=== PATIENT | female | born 1960 | race Caucasian/White ===

== ENCOUNTER 2017-04-16 05:28 | Inpatient (IN) | payer OTHER ==
[2017-04-08 11:22] LABS: CLARITY,URINE Clear (Clear); COLOR,URINE Yellow (Yellow); GLUCOSE, URINE Negative (Neg); KETONES,URINE 15 mg/dl (Neg); LEUKOCYTE ESTERASE ,URINE Small (Neg); NITRITES, URINE Negative (Neg); OCCULT BLOOD,URINE Negative (Neg); PROTEIN,URINE Negative (Neg); UROBILINOGEN,URINE 0.2 E.U/dL (0.2-1.0)
[2017-04-08 11:24] LABS: BASOPHILS % (AUTO) 0.5 % (0-1); EOSINOPHILS # (AUTO) 0.1 X10'3 (0-0.9); EOSINOPHILS % (AUTO) 1.5 % (0-6); LYMPHOCYTES # (AUTO) 1.5 X10'3 (1.1-4.8); LYMPHOCYTES % (AUTO) 29.8 % (21-51); MEAN CORPUSCULAR HEMOGLOBIN 31.4 PG (27.0-31.0); MEAN CORPUSCULAR HGB CONC 34.5 % (33.0-36.5); MEAN CORPUSCULAR VOLUME 90.9 FL (78-98); MEAN PLATELET VOLUME 8.4 FL (7.4-10.4); MONOCYTES # (AUTO) 0.3 X10'3 (0-0.9); MONOCYTES % (AUTO) 6.8 % (2-12); NEUTROPHILS # (AUTO) 3.1 X10'3 (1.8-7.7); NEUTROPHILS % (AUTO) 61.4 % (42-75); PRE OP HEMATOCRIT 39.2 % (35.0-45.0); PRE OP HEMOGLOBIN 13.5 g/dL (12.0-16.0); PRE OP PLATELET COUNT 225 X10'3 (140-440); RED BLOOD COUNT 4.31 X10'6 (4.20-5.60); RED CELL DISTRIBUTION WIDTH 13.1 % (11.5-14.5)
[2017-04-08 11:29] LABS: UA COLLECTION TYPE CLN CATCH MIDSTREAM
[2017-04-08 11:40] LABS: ALBUMIN 4.5 G/DL (3.4-5.0); ALBUMIN/GLOBULIN RATIO 1.4 (1.1-1.5); ALKALINE PHOSPHATASE 67 IU/L (46-116); BLOOD UREA NITROGEN 11 MG/DL (7-18); BUN/CREATININE RATIO 21.6 (6.6-38.0); CALCIUM 9.4 MG/DL (8.5-10.1); CHLORIDE 102 MMOL/L (99-107); CREATININE 0.51 MG/DL (0.40-0.90); PRE OP ALT 23 U/L (30-65); PRE OP ANION GAP 7 (8-16); PRE OP AST 21 U/L (10-37); PRE OP BILIRUB, TOTAL 1.5 MG/DL (0.0-1.0); PRE OP GLUCOSE 92 MG/DL (70-104); PRE OP POTASSIUM 3.7 MMOL/L (3.4-5.1); PRE OP SODIUM 139 MMOL/L (135-145); TOTAL PROTEIN 7.7 G/DL (6.4-8.2); eGFR > 90 ML/MIN
[2017-04-08 11:50] LABS: RBC,URINE 0-2 /HPF (0-2)
[2017-04-08 11:51] LABS: BACTERIA,URINE NONE SEEN /HPF (Neg); SQUAMOUS EPITHELIAL CELL,UR NONE SEEN /LPF (FEW); WBC,URINE 0-4 /HPF (0-4)
[2017-04-16] VITALS (17 sets, daily range): BP systolic 101–164; BP diastolic 56–84
[~2017-04-16] VITALS: Ht 160 cm; Wt 68.2 kg
[~2017-04-16 05:28] MED LIST: ACET-2812 PO; ASCO500C15 PO; CBD OIL TOP; GLUC-237 PO; IBUP-1984 PO; OSC500T PO; ringers solution, lacted 1,000 ML IV SCH
[2017-04-16] MEDS ORDERED: acetaminophen 325mg tablet PO ONE (05:30)
[2017-04-16] MEDS ORDERED: VANCOMYCIN INJ 1000 MG in NORMAL SALINE 250ml IV.SOLN IV ONE (05:30)
[2017-04-16] MEDS ORDERED: famotidine 20mg tablet PO ONE (05:30)
[2017-04-16] MEDS ORDERED: celeCOXIB 100mg capsule PO ONE (05:30)
[2017-04-16] MEDS ORDERED: gabapentin 300mg capsule PO ONE (05:30)
[2017-04-16] MEDS ORDERED: metoclopramide 5 mg/ml inj IV ONE (05:30)
[2017-04-16] MEDS ORDERED: tranexamic acid inj. 1,000 MG in normal saline 100ml IV soln 90 ML IV ONE (05:30)
[2017-04-16] MEDS ORDERED: cefazolin/dext.iso 2gm/50ml 50 ML IV ONE (05:30)
[2017-04-16] MEDS ORDERED: LIDOcaine 1% (10mg/ml) 2ml vial ONE (06:29)
[2017-04-16] MEDS ORDERED: epiNEPHrine 1 mg/ml inj ONE (06:47)
[2017-04-16] MEDS ORDERED: ketorolac trometh. 30mg/ml inj. ONE (06:47)
[2017-04-16] MEDS ORDERED: cloNIDine hcl/PF 100mcg/ml inj ONE ×2 (06:47→07:13)
[2017-04-16] MEDS ORDERED: vancomycin 1,000mg inj ONE (06:48)
[2017-04-16] MEDS ORDERED: ROPIVAcaine 0.5% (5mg/ml) 30ml vial ONE (06:48)
[2017-04-16] MEDS ORDERED: metoclopramide 10mg tablet PO ONE (06:50)
[2017-04-16] MEDS ORDERED: MIDAZolam 1mg/ml 10ml vial ONE (07:17)
[2017-04-16] MEDS ORDERED: MORPHINE SULFATE/PF 0.5 MG/ML 10ML AMPUL ONE (07:18)
[2017-04-16] MEDS ORDERED: ringers solution, lacted 1,000 ML IV SCH (08:36)
[2017-04-16] MEDS ORDERED: meperidine/PF 50mg/ml syringe IV PRN ×3 (08:40)
[2017-04-16] MEDS ORDERED: proCHLORperazine 10 MG/2 ml inj IV PRN (08:40)
[2017-04-16] MEDS ORDERED: morphine 2 MG/ML inj. syringe IV PRN ×2 (08:40)
[2017-04-16] MEDS ORDERED: ondansetron/PF 4mg/2ml inj IV PRN ×3 (08:40→09:35)
[2017-04-16] MEDS ORDERED: acetaminophen 1,000mg/100ml IV 100 ML IV PRN (08:40)
[2017-04-16] MEDS ORDERED: BUPIVAcaine/PF 2.5 mg/ml (0.25%) 30ml vial ONE (08:59)
[2017-04-16] MEDS ORDERED: dexamethasone sod phosphate 4mg/ml inj. ONE (08:59)
[2017-04-16] MEDS ORDERED: ePHEDrine 50MG/ML INJ. ONE (08:59)
[2017-04-16] MEDS ORDERED: propofol inj 20 ML IV ONE ×2 (08:59)
[2017-04-16] MEDS ORDERED: HYDROmorphone inj. 0.5 MG/0.5 ML DISP.SYRIN IV PRN ×2 (09:35)
[2017-04-16] MEDS ORDERED: oxyCODONE/APAP 10/325mg tablet PO PRN (09:35)
[2017-04-16] MEDS ORDERED: bisacodyl 10mg suppository rectal RC PRN (09:35)
[2017-04-16] MEDS ORDERED: magnesium hydroxide 30ml (MOM) UD suspension PO PRN (09:35)
[2017-04-16] MEDS ORDERED: naloxone 2mg/2ml inj 1.4 MG in normal saline 500ml IV soln 500 ML IV PRN (09:35)
[2017-04-16] MEDS ORDERED: diphenhydrAMINE 25mg capsule PO PRN ×2 (09:35)
[2017-04-16] MEDS ORDERED: acetaminophen 325mg tablet PO PRN (09:35)
[2017-04-16] MEDS ORDERED: diphenhydrAMINE 50 mg/ml inj IV PRN (09:35)
[2017-04-16] MEDS: potassium cl 20mEq in 1/2 NS 1,000 ML IV SCH ×2 (10:51→18:57)
[2017-04-16] MEDS: oxyCODONE/APAP 10/325mg tablet PO SCH ×2 (12:38→16:28)
[2017-04-16] MEDS: gabapentin 300mg capsule PO SCH ×2 (12:38→20:14)
[2017-04-16] MEDS: cefazolin 1gm/NS 100mL 100 ML IV SCH (15:43)
[2017-04-16] MEDS ORDERED: vancomycin/NS 1 GM ADD-VANTAGE 250 ML IV SCH (20:00)
[2017-04-16] MEDS ORDERED: ascorbic acid 500mg tablet PO SCH (20:00)
[2017-04-16] MEDS: oxyCODONE/APAP 10/325mg tablet PO PRN (20:12)
[2017-04-16] MEDS: celeCOXIB 100mg capsule PO SCH (20:13)
[2017-04-16] MEDS: ascorbic acid 500mg tablet PO SCH (20:13)
[2017-04-16] MEDS: sennosides 8.6mg tablet PO SCH (20:14)
[2017-04-17] VITALS (7 sets, daily range): BP systolic 95–123; BP diastolic 44–59
[2017-04-17] MEDS: cefazolin 1gm/NS 100mL 100 ML IV SCH (00:01)
[2017-04-17] MEDS: potassium cl 20mEq in 1/2 NS 1,000 ML IV SCH ×2 (01:31→04:56)
[2017-04-17] MEDS: oxyCODONE/APAP 10/325mg tablet PO PRN ×5 (04:55→17:46)
[2017-04-17 06:24] LABS: BASOPHILS % (AUTO) 0.3 % (0-1); EOSINOPHILS # (AUTO) 0.1 X10'3 (0-0.9); EOSINOPHILS % (AUTO) 1.1 % (0-6); HEMATOCRIT 28.7 % (35.0-45.0); LYMPHOCYTES # (AUTO) 1.2 X10'3 (1.1-4.8); MEAN CORPUSCULAR HEMOGLOBIN 31.4 PG (27.0-31.0); MEAN CORPUSCULAR HGB CONC 34.8 % (33.0-36.5); MEAN CORPUSCULAR VOLUME 90.4 FL (78-98); MEAN PLATELET VOLUME 8.7 FL (7.4-10.4); MONOCYTES # (AUTO) 0.7 X10'3 (0-0.9); NEUTROPHILS # (AUTO) 4.8 X10'3 (1.8-7.7); NEUTROPHILS % (AUTO) 71.6 % (42-75); PLATELET COUNT 152 X10'3 (140-440); RED BLOOD COUNT 3.17 X10'6 (4.20-5.60); RED CELL DISTRIBUTION WIDTH 13.3 % (11.5-14.5); WHITE BLOOD COUNT 6.8 X10'3 (4.5-11.0)
[2017-04-17 06:30] LABS: ANION GAP 4 (8-16); CHLORIDE 100 MMOL/L (99-107); POTASSIUM 4.6 MMOL/L (3.5-5.1); SODIUM 131 MMOL/L (135-145); TOTAL CARBON DIOXIDE 27.4 MMOL/L (24-32)
[2017-04-17] MEDS: celeCOXIB 100mg capsule PO SCH ×2 (08:26→20:34)
[2017-04-17] MEDS: calcium carbonate 500mg tablet PO SCH (08:27)
[2017-04-17] MEDS: gabapentin 300mg capsule PO SCH ×3 (08:27→20:34)
[2017-04-17] MEDS: multivitamins, therapeutics tablet PO SCH (08:28)
[2017-04-17] MEDS: ascorbic acid 500mg tablet PO SCH ×2 (08:28→20:34)
[2017-04-17] MEDS: aspirin 325mg tablet PO SCH (08:28)
[2017-04-17] MEDS: sennosides 8.6mg tablet PO SCH (20:34)
[2017-04-18] MEDS: oxyCODONE/APAP 10/325mg tablet PO PRN ×3 (00:33→10:08)
[2017-04-18 06:00] VITALS: BP 141/71
[2017-04-18 06:26] LABS: BASOPHILS % (AUTO) 0.3 % (0-1); EOSINOPHILS # (AUTO) 0.1 X10'3 (0-0.9); EOSINOPHILS % (AUTO) 1.6 % (0-6); HEMATOCRIT 30.3 % (35.0-45.0); HEMOGLOBIN 10.4 g/dl (12.0-16.0); LYMPHOCYTES # (AUTO) 0.9 X10'3 (1.1-4.8); LYMPHOCYTES % (AUTO) 16.4 % (21-51); MEAN CORPUSCULAR HEMOGLOBIN 30.9 PG (27.0-31.0); MEAN CORPUSCULAR HGB CONC 34.2 % (33.0-36.5); MEAN CORPUSCULAR VOLUME 90.4 FL (78-98); MEAN PLATELET VOLUME 9.1 FL (7.4-10.4); MONOCYTES # (AUTO) 0.6 X10'3 (0-0.9); MONOCYTES % (AUTO) 10.4 % (2-12); NEUTROPHILS % (AUTO) 71.3 % (42-75); PLATELET COUNT 129 X10'3 (140-440); RED BLOOD COUNT 3.35 X10'6 (4.20-5.60); RED CELL DISTRIBUTION WIDTH 12.9 % (11.5-14.5); WHITE BLOOD COUNT 5.6 X10'3 (4.5-11.0)
[2017-04-18] MEDS ORDERED: ASPI-1 PO (06:35)
[2017-04-18 06:37] LABS: ANION GAP 6 (8-16); BLOOD UREA NITROGEN 11 MG/DL (7-18); BUN/CREATININE RATIO 20.4 (6.6-38.0); CALCIUM 8.4 MG/DL (8.5-10.1); CHLORIDE 101 MMOL/L (99-107); CREATININE 0.54 MG/DL (0.40-0.90); GLUCOSE 99 MG/DL (70-104); SODIUM 136 MMOL/L (135-145); TOTAL CARBON DIOXIDE 29.4 MMOL/L (24-32); eGFR > 90 ML/MIN
[2017-04-18] MEDS: calcium carbonate 500mg tablet PO SCH (07:36)
[2017-04-18] MEDS: gabapentin 300mg capsule PO SCH (07:36)
[2017-04-18] MEDS: aspirin 325mg tablet PO SCH (07:36)
[2017-04-18] MEDS: celeCOXIB 100mg capsule PO SCH (07:36)
[2017-04-18] MEDS: ascorbic acid 500mg tablet PO SCH (07:36)
[2017-04-18] MEDS: multivitamins, therapeutics tablet PO SCH (07:36)
== END 2017-04-18 10:35 | disposition home or self-care (01) | DRG 470 ==
LOC: PAS IN 05:28 → EDSTATUS 07:30 → ORTHO 4S 10:35
PROVIDERS: ADMIT Orthopaedic Surgery; ATTEND Orthopaedic Surgery
PROC: 0SRC0J9 Replacement of Right Knee Joint with Synthetic Substitute, Cemented, Open Approach (ICD-10-PCS; principal; 2017-04-16 07:14)
DX: M17.11 Unilateral primary osteoarthritis, right knee (principal); D62 Acute posthemorrhagic anemia; M77.9 Enthesopathy, unspecified; Z79.82 Long term (current) use of aspirin; Z79.899 Other long term (current) drug therapy
CPT/HCPCS: 36415; 71046; 73560; 80048; 80051; 80053; 81001; 85025; 86885; 86900; 86901; 87070; 87088; 93005; 97110; 97116; 97161; 97530; A6449; A6455; A7000; C1713; C1758; C1776; J0171; J0690; J0735; J1100; J1885; J2250; J2274; J2310; J2704; J2795; J3370; J3490; J7030; J7120; J8597

== ENCOUNTER 2018-02-05 06:07 | Inpatient (IN) | payer OTHER ==
[2018-01-26 15:24] LABS: BASOPHILS # (AUTO) 0.1 X10'3 (0-0.2); BASOPHILS % (AUTO) 1.1 % (0-1); EOSINOPHILS # (AUTO) 0.2 X10'3 (0-0.9); LYMPHOCYTES # (AUTO) 2.1 X10'3 (1.1-4.8); LYMPHOCYTES % (AUTO) 37.8 % (21-51); MEAN CORPUSCULAR HEMOGLOBIN 30.4 PG (27.0-31.0); MEAN CORPUSCULAR HGB CONC 33.4 % (33.0-36.5); MEAN CORPUSCULAR VOLUME 91.2 FL (78-98); MEAN PLATELET VOLUME 8.8 FL (7.4-10.4); MONOCYTES # (AUTO) 0.4 X10'3 (0-0.9); NEUTROPHILS # (AUTO) 2.9 X10'3 (1.8-7.7); NEUTROPHILS % (AUTO) 51.1 % (42-75); PRE OP HEMATOCRIT 39.3 % (35.0-45.0); PRE OP HEMOGLOBIN 13.1 g/dL (12.0-16.0); PRE OP PLATELET COUNT 203 X10'3 (140-440); RED BLOOD COUNT 4.31 X10'6 (4.20-5.60); RED CELL DISTRIBUTION WIDTH 13.2 % (11.5-14.5)
[2018-01-26 15:35] LABS: ALBUMIN/GLOBULIN RATIO 1.3 (1.1-1.5); ALKALINE PHOSPHATASE 90 IU/L (46-116); BLOOD UREA NITROGEN 11 MG/DL (7-18); BUN/CREATININE RATIO 23.4 (6.6-38.0); CALCIUM 9.5 MG/DL (8.5-10.1); CHLORIDE 103 MMOL/L (99-107); CREATININE 0.47 MG/DL (0.40-0.90); PRE OP ALT 26 U/L (30-65); PRE OP ANION GAP 8 (8-16); PRE OP AST 21 U/L (10-37); PRE OP GLUCOSE 92 MG/DL (70-104); PRE OP POTASSIUM 3.6 MMOL/L (3.4-5.1); PRE OP SODIUM 140 MMOL/L (135-145); TOTAL CARBON DIOXIDE 28.9 MMOL/L (24-32); TOTAL PROTEIN 7.1 G/DL (6.4-8.2); eGFR > 90 ML/MIN
[2018-01-26 15:50] LABS: CLARITY,URINE CLEAR (Clear); COLOR,URINE STRAW (Yellow); GLUCOSE, URINE NEGATIVE (Neg); KETONES,URINE NEGATIVE (Neg); LEUKOCYTE ESTERASE ,URINE NEGATIVE (Neg); NITRITES, URINE NEGATIVE (Neg); OCCULT BLOOD,URINE NEGATIVE (Neg); PH,URINE 6.5 (4.8-8.0); PROTEIN,URINE NEGATIVE (Neg); UA COLLECTION TYPE CLN CATCH MIDSTREAM; UROBILINOGEN,URINE 0.2 E.U/dL (0.2-1.0)
[2018-02-05] VITALS (18 sets, daily range): BP systolic 98–144; BP diastolic 45–78
[~2018-02-05] VITALS: Ht 160 cm; Wt 76.1 kg
[~2018-02-05 06:07] MED LIST changes: +ASCO-22 PO; -ASCO500C15 PO; +ASPI81TA52 PO; -CBD OIL TOP; +VITA400C19 PO; +acetaminophen 325mg tablet PO ONE; +ceFAZolin inj. 2,000 MG in dextrose 5%-water 50ml 50 ML IV ONE; +celeCOXIB 100mg capsule PO ONE; +famotidine 20mg tablet PO ONE; +gabapentin 300mg capsule PO ONE; +metoclopramide 5 mg/ml inj IV ONE; +normal saline 1000ml 1,000 ML IV SCH; +oxyCODONE SR 10mg (sust. release) tab -2 tabs (20mg) PO ONE; +tranexamic acid inj. 1,000 MG in normal saline 100ml IV soln 90 ML IV ONE; +vancomycin inj 1,500 MG in normal saline 300ml IV soln IV ONE
[2018-02-05] MEDS ORDERED: ROPIVAcaine 0.5% (5mg/ml) 30ml vial ONE ×2 (06:49→10:49)
[2018-02-05] MEDS ORDERED: ketorolac trometh. 30mg/ml inj. ONE (06:49)
[2018-02-05] MEDS ORDERED: vancomycin 1,000mg inj ONE (06:49)
[2018-02-05] MEDS ORDERED: cloNIDine hcl/PF 100mcg/ml inj ONE (06:49)
[2018-02-05] MEDS ORDERED: epiNEPHrine 1 mg/ml inj ONE (06:49)
[2018-02-05] MEDS ORDERED: HYDROmorphone 1 mg/ml syringe IV PRN ×2 (07:10)
[2018-02-05] MEDS ORDERED: diphenhydrAMINE 25mg capsule PO PRN ×2 (07:10)
[2018-02-05] MEDS ORDERED: bisacodyl 10mg suppository rectal RC PRN (07:10)
[2018-02-05] MEDS ORDERED: ondansetron/PF 4mg/2ml inj IV PRN ×2 (07:10→10:05)
[2018-02-05] MEDS ORDERED: magnesium hydroxide 30ml (MOM) UD suspension PO PRN (07:10)
[2018-02-05] MEDS: potassium cl 20mEq in 1/2 NS 1,000 ML IV SCH ×3 (07:10→23:28)
[2018-02-05] MEDS ORDERED: acetaminophen 325mg tablet PO PRN (07:10)
[2018-02-05] MEDS: ascorbic acid 500mg tablet PO SCH ×2 (08:00→19:55)
[2018-02-05] MEDS ORDERED: vancomycin/NS 1 GM ADD-VANTAGE 250 ML IV SCH (08:00)
[2018-02-05] MEDS: gabapentin 300mg capsule PO SCH ×3 (08:00→19:55)
[2018-02-05] MEDS: multivitamins, therapeutics tablet PO SCH (08:00)
[2018-02-05] MEDS: aspirin 325mg tablet PO SCH (08:30)
[2018-02-05] MEDS ORDERED: MIDAZolam 1mg/ml 10ml vial ONE (09:22)
[2018-02-05] MEDS ORDERED: fentaNYL/PF 50MCG/1 ML 2ML syringe ONE (09:23)
[2018-02-05] MEDS ORDERED: propofol inj 20 ML IV ONE (09:38)
[2018-02-05] MEDS ORDERED: ringers solution, lacted 1,000 ML IV SCH (10:03)
[2018-02-05] MEDS ORDERED: morphine 4 MG/ML inj SYRINge IV PRN ×2 (10:05)
[2018-02-05] MEDS ORDERED: meperidine/PF 25mg/ml syringe IV PRN ×3 (10:05)
[2018-02-05] MEDS ORDERED: proCHLORperazine 10 MG/2 ml inj IV PRN (10:05)
[2018-02-05] MEDS: oxyCODONE/APAP 10/325mg tablet PO PRN ×3 (14:13→21:51)
[2018-02-05] MEDS ORDERED: tranexamic acid inj. 1,000 MG in normal saline 100ml IV soln 100 ML IV ONE (16:00)
[2018-02-05] MEDS: ceFAZolin 1GM/D5W- ADD-VANTAGE 50 ML IV SCH ×2 (16:47→16:50)
[2018-02-05] MEDS: sennosides 8.6mg tablet PO SCH (19:55)
[2018-02-06] VITALS (8 sets, daily range): BP systolic 96–148; BP diastolic 47–72
[2018-02-06] MEDS ORDERED: ceFAZolin 1GM/D5W- ADD-VANTAGE 50 ML IV SCH
[2018-02-06] MEDS: oxyCODONE/APAP 10/325mg tablet PO PRN ×5 (03:39→21:12)
[2018-02-06 06:48] LABS: BASOPHILS % (AUTO) 0.5 % (0-1); EOSINOPHILS # (AUTO) 0.1 X10'3 (0-0.9); EOSINOPHILS % (AUTO) 1.1 % (0-6); HEMATOCRIT 32.2 % (35.0-45.0); HEMOGLOBIN 10.9 g/dl (12.0-16.0); LYMPHOCYTES # (AUTO) 1.3 X10'3 (1.1-4.8); LYMPHOCYTES % (AUTO) 18.1 % (21-51); MEAN CORPUSCULAR HEMOGLOBIN 30.8 PG (27.0-31.0); MEAN CORPUSCULAR HGB CONC 33.8 % (33.0-36.5); MEAN CORPUSCULAR VOLUME 91.1 FL (78-98); MEAN PLATELET VOLUME 8.7 FL (7.4-10.4); MONOCYTES # (AUTO) 0.7 X10'3 (0-0.9); MONOCYTES % (AUTO) 9.4 % (2-12); NEUTROPHILS # (AUTO) 5.2 X10'3 (1.8-7.7); NEUTROPHILS % (AUTO) 70.9 % (42-75); PLATELET COUNT 163 X10'3 (140-440); RED BLOOD COUNT 3.54 X10'6 (4.20-5.60); RED CELL DISTRIBUTION WIDTH 13.3 % (11.5-14.5); WHITE BLOOD COUNT 7.3 X10'3 (4.5-11.0)
[2018-02-06 06:53] LABS: ANION GAP 7 (8-16); CHLORIDE 102 MMOL/L (99-107); POTASSIUM 4.3 MMOL/L (3.5-5.1); SODIUM 135 MMOL/L (135-145); TOTAL CARBON DIOXIDE 26.4 MMOL/L (24-32)
[2018-02-06] MEDS: gabapentin 300mg capsule PO SCH ×3 (07:49→19:57)
[2018-02-06] MEDS: multivitamins, therapeutics tablet PO SCH (07:49)
[2018-02-06] MEDS: ascorbic acid 500mg tablet PO SCH ×2 (07:49→19:57)
[2018-02-06] MEDS: aspirin 325mg tablet PO SCH (07:49)
[2018-02-06] MEDS: potassium cl 20mEq in 1/2 NS 1,000 ML IV SCH ×3 (09:29→17:09)
[2018-02-06] MEDS ORDERED: ASPI-1 PO (17:44)
[2018-02-06] MEDS: celeCOXIB 100mg capsule PO SCH (19:57)
[2018-02-06] MEDS: sennosides 8.6mg tablet PO SCH (19:57)
[2018-02-07] MEDS: oxyCODONE/APAP 5-325mg tablet PO PRN ×2 (05:09→08:52)
[2018-02-07 06:00] VITALS: BP 142/62
[2018-02-07 07:07] LABS: BASOPHILS % (AUTO) 0.2 % (0-1); EOSINOPHILS % (AUTO) 0.3 % (0-6); HEMATOCRIT 30.8 % (35.0-45.0); HEMOGLOBIN 10.5 g/dl (12.0-16.0); LYMPHOCYTES # (AUTO) 0.7 X10'3 (1.1-4.8); LYMPHOCYTES % (AUTO) 14.4 % (21-51); MEAN CORPUSCULAR HGB CONC 34.2 % (33.0-36.5); MEAN CORPUSCULAR VOLUME 90.7 FL (78-98); MEAN PLATELET VOLUME 8.9 FL (7.4-10.4); MONOCYTES # (AUTO) 0.4 X10'3 (0-0.9); MONOCYTES % (AUTO) 8.9 % (2-12); NEUTROPHILS # (AUTO) 3.5 X10'3 (1.8-7.7); NEUTROPHILS % (AUTO) 76.2 % (42-75); PLATELET COUNT 140 X10'3 (140-440); RED BLOOD COUNT 3.39 X10'6 (4.20-5.60); RED CELL DISTRIBUTION WIDTH 13.5 % (11.5-14.5); WHITE BLOOD COUNT 4.6 X10'3 (4.5-11.0)
[2018-02-07] MEDS: aspirin 325mg tablet PO SCH (08:51)
[2018-02-07] MEDS: multivitamins, therapeutics tablet PO SCH (08:51)
[2018-02-07] MEDS: ascorbic acid 500mg tablet PO SCH (08:51)
[2018-02-07] MEDS: celeCOXIB 100mg capsule PO SCH (08:51)
[2018-02-07] MEDS: gabapentin 300mg capsule PO SCH (08:52)
== END 2018-02-07 11:25 | disposition home or self-care (01) | DRG 470 ==
LOC: PAS IN 06:07 → EDSTATUS 09:15 → ORTHO 4S 12:34
PROVIDERS: ADMIT Orthopaedic Surgery; ATTEND Orthopaedic Surgery
PROC: 3E0T3BZ Introduction of Anesthetic Agent into Peripheral Nerves and Plexi, Percutaneous Approach (ICD-10-PCS; 2018-02-05)
PROC: 0SRD0J9 Replacement of Left Knee Joint with Synthetic Substitute, Cemented, Open Approach (ICD-10-PCS; principal; 2018-02-05 09:17)
DX: M17.12 Unilateral primary osteoarthritis, left knee (principal); D62 Acute posthemorrhagic anemia; E66.9 Obesity, unspecified; Z96.651 Presence of right artificial knee joint; Z79.899 Other long term (current) drug therapy; Z68.29 Body mass index [BMI] 29.0-29.9, adult
CPT/HCPCS: 36415; 73560; 80051; 80053; 81003; 85025; 86885; 86900; 86901; 87070; 93005; 97110; 97116; 97162; 97530; A6449; A6455; A7000; A9272; C1713; C1758; C1776; G0378; J0171; J0690; J0735; J1885; J2250; J2704; J2765; J2795; J3010; J3370; J7030; J7060; J7120